=== PATIENT | female | born 1980 | race Caucasian/White ===

== ENCOUNTER 2018-02-20 20:58 | Emergency (ER) | payer OTHER ==
[2018-02-20 21:13] VITALS: BP 126/91
--- NOTE | 2018-02-20 21:31 | UC ---
Ear Complaint HPI - HPI Summary HPI Summary: This is albert Vu documenting for attending Sandeep Escalante MD. This patient is a 37 year old F presenting to [facility] accompanied by her and son with a chief complaint of a whooshing noise in her right ear since 15: 30. The patient reports that her symptoms began after she had a workout session and was lifting weights over her head. The patient notes that the sound is not in time with her heartbeat. The patient rates the pain 0/10 in severity. Symptoms aggravated by nothing. Symptoms alleviated by nothing. Patient denies any recent swimming, headache, or neck pain. The patient notes she researched her symptoms online and is concerned she has a carotid dissection. - History of Current Complaint Chief Complaint: UCEar Stated Complaint: EAR COMPLAINT Time Seen by Provider: 02/20/18 21:15 Hx Obtained From: Patient Hx Last Menstrual Period: NOW Onset/Duration: Sudden Onset, Lasting Hours, Still Present Severity Currently: None Pain Intensity: 0 Pain Scale Used: 0-10 Numeric Aggravating Factors: Nothing Alleviating Factors: Nothing - Allergies/Home Medications Allergies/Adverse Reactions: Allergies Allergy/AdvReac Type Severity Reaction Status Date / Time No Known Allergies Allergy Verified 02/20/18 21:13 Home Medications: Home Medications NK [No Home Medications Reported] 02/20/18 [History Confirmed 02/20/18] PMH/Surg Hx/FS Hx/Imm Hx Previously Healthy: Yes - Surgical History Surgical History: Yes Surgery Procedure, Year, and Place: c section 2002. ankle 2000. 2012. endometriosis surgery - Family History Known Family History: Positive: None - Social History Alcohol Use: None Substance Use Type: None Smoking Status (MU): Never Smoked Tobacco - Immunization History Most Recent Influenza Vaccination: states recieved with this Most Recent Tetanus Shot: unknown Review of Systems ENT: Negative - negative ear pain, Other - "whooshing" sound in right ear Respiratory: Negative - negative cough Musculoskeletal: Myalgia - negative neck pain Neurological: Negative - negative headache All Other Systems Reviewed And Are Negative: Yes Physical Exam - Summary Physical Exam Summary: General: well-appearing, no pain distress Skin: warm, color reflects adequate perfusion, dry Head: normal Eyes: EOMI, DAYNA ENT: normal Neck: supple, nontender, no bruits Respiratory: CTA, breath sounds present Cardiovascular: RRR Abdomen: soft, nontender Bowel: present Musculoskeletal: normal, strength/ROM intact Neurological: sensory/motor intact, A&O x3 Psychological: affect/mood appropriate Triage Information Reviewed: Yes Vital Signs: Initial Vital Signs Temp 99.5 F 02/20/18 21:08 Pulse 86 02/20/18 21:08 Resp 16 02/20/18 21:08 BP 126/91 02/20/18 21:08 Pulse Ox 99 02/20/18 21:08 Vital Signs Reviewed: Yes Ear Complaint Course/Dx - Course Course Of Treatment: NL EAR EXAM. NO BRUIT. NO CURRY OR NECK PAIN. PUPILS EQUAL AND REACTIVE. DISCUSSED VASCULAR CAUSES OF TINNITUS TO INCLUDE CAROTID DISSECTION WHICH IS UNLIKELY BUT POSSIBLE AND TO DIAGNOSIS CTA IS NEEDED WHICH WE DO NOT HAVE HERE. DISCUSSED GOING TO THE ED FOR FURTHER EVALUATION IF SX WORSEN. OTHERWISE F/U WITH ENT/PMD; RECHECK SOONER IF WORSE. - Differential Dx/Diagnosis Provider Diagnoses: TINNITUS RIGHT EAR Discharge - Sign-Out/Discharge Documenting (check all that apply): Patient Departure - Discharge Plan Condition: Stable Disposition: HOME Patient Education Materials: Tinnitus (ED) Referrals: Salas Snyder MD [Primary Care Provider] - Jose Carson MD [Medical Doctor] - Additional Instructions: FOLLOW UP WITH YOUR PRIMARY CARE DOCTOR OR ENT IF NOT COMPLETELY IMPROVED. GO TO THE EMERGENCY DEPARTMENT FOR ANY WORSENING OF YOUR CONDITION; NECK OR HEAD PAIN, WEAKNESS, NUMBNESS, DIFFICULTY WITH VISION OR SPEECH OR QUESTIONS OR CONCERNS. - Billing Disposition and Condition Condition: STABLE Disposition: Home
== END 2018-02-20 21:52 | disposition home or self-care (01) ==
LOC: UCEAST 20:58
DX: H93.11 Tinnitus, right ear (principal)
CPT/HCPCS: 99211; G0463